=== PATIENT | female | born 1940 | race African-American/Black ===

== ENCOUNTER 2016-04-19 00:45 | Inpatient (IN) | payer OTHER ==
[~2016-04-19] VITALS: Ht 165.1 cm; Wt 74.0 kg
[2016-04-19] VITALS (9 sets, daily range): BP systolic 149–194; BP diastolic 61–80; PULSE 67–108; RESP 16–18; TEMP 98–98.3; O2SAT 98–100
[2016-04-19] MEDS ORDERED: SODIUM CHLORIDE 0.9% FLUSH 5 ML FLUSH IVF PRN (01:15)
[2016-04-19] MEDS ORDERED: ONDANSETRON HCL 4 MG/2 ML VIAL IVP ONE (01:15)
--- NOTE | 2016-04-19 01:23 | PD ---
HPI Chief Complaint: Psychiatric Symptoms Time Seen by Provider: 01:10 Travel History International Travel<30 days: No Contact w/Intl Traveler<30days: No Traveled to known affect area: No History of Present Illness HPI This is a 76-year-old female who was brought here under Mcmillan act initiated by the Police Department. According to the Mcmillan act form the patient has not taken any medication or eaten anything in the past 4 days. No other history is available at this time. The patient has never been here before. The patient is complaining of generalized abdominal pain. She says that this comes and goes. She offers no time frame for the pain. She denies nausea or vomiting, diarrhea or constipation, fevers or chills, chest pain or shortness of breath. When asked about eating or taking her medications she says that she does take her medications. She is unable to provide any listed medications that she takes. She is unable to provide a past medical history. History is limited. PFSH Past Medical History ?: Not Social History Tobacco Use: No Allergies-Medications (Allergen,Severity, Reaction): Coded Allergies: Penicillin (Verified Allergy, Severe, Anaphylaxis, 04/19/16) Reported Meds & Prescriptions Reported Meds & Active Scripts Active Reported Novolog Inj (Insulin Aspart) 100 Unit/Ml Inj 25 SQ PM Novolog Inj (Insulin Aspart) 100 Unit/Ml Inj 25 Units SQ AM Lantus Inj (Insulin Glargine) 100 Unit/Ml Inj 45 SQ AM Atorvastatin (Atorvastatin Calcium) 40 Mg Tab 40 Mg PO HS Lisinopril 40 Mg Tab 40 Mg PO DAILY Glimepiride 4 Mg Tab 8 Mg PO DAILY Take with breakfast or first main meal Januvia (Sitagliptin Phosphate) 100 Mg Tab 100 Mg PO DAILY Review of Systems ROS Limitations: Poor Historian Except as stated in HPI: all other systems reviewed are Neg Physical Exam Exam Limitations: Poor Historian Narrative GENERAL: Well-developed well-nourished female in no acute distress SKIN: Warm and dry. HEAD: Atraumatic. Normocephalic. EYES: Pupils equal and round. No scleral icterus. No injection or drainage. ENT: No nasal bleeding or discharge. Mucous membranes pink and moist. NECK: Trachea midline. No JVD. CARDIOVASCULAR: Regular rate and rhythm. No murmur appreciated. RESPIRATORY: No accessory muscle use. Clear to auscultation. Breath sounds equal bilaterally. GASTROINTESTINAL: Abdomen soft, there is generalized tenderness to palpation without guarding. MUSCULOSKELETAL: No obvious deformities. NEUROLOGICAL: Awake and alert. No obvious cranial nerve deficits. Motor grossly within normal limits. Normal speech. She is alert to person. She believes that she is in [place]. She does not know what year it is. PSYCHIATRIC: Appropriate mood and affect; insight and judgment normal. Data Data Last Documented VS Vital Signs Date Time Temp Pulse Resp B/P Pulse Ox O2 Delivery O2 Flow Rate FiO2 04/19/16 04:00 75 18 169/76 99 Room Air 04/19/16 00:58 98.0 Orders Complete Blood Count With Diff (04/19/16 01:14) Comprehensive Metabolic Panel (04/19/16 01:14) Lipase (04/19/16 01:14) Prothrombin Time / Inr (Pt) (04/19/16 01:14) Act Partial Throm Time (Ptt) (04/19/16 01:14) Urinalysis - C+S If Indicated (04/19/16 01:14) Ct Abd/Pel W Iv Contrast(Rout) (04/19/16 01:14) Iv Access Insert/Monitor (04/19/16 01:14) Ecg Monitoring (04/19/16 01:14) Oximetry (04/19/16 01:14) Ondansetron Inj (Zofran Inj) (04/19/16 01:15) Sodium Chloride 0.9% Flush (Ns Flush) (04/19/16 01:15) Electrocardiogram (04/19/16 01:14) Ct Brain W/O Iv Contrast(Rout) (04/19/16 01:14) Sodium Chlor 0.9% 1000 Ml Inj (Ns 1000 M (04/19/16 02:47) Iohexol 350 Inj (Omnipaque 350 Inj) (04/19/16 03:03) ^ Sitter (04/19/16 04:00) Psych Screen (04/19/16 04:16) Labs Laboratory Tests Test 04/19/16 04/19/16 01:25 02:25 White Blood Count 7.8 TH/MM3 Red Blood Count 4.12 MIL/MM3 Hemoglobin 12.7 GM/DL Hematocrit 36.5 % Mean Corpuscular Volume 88.7 FL Mean Corpuscular Hemoglobin 30.8 PG Mean Corpuscular Hemoglobin 34.7 % Concent Red Cell Distribution Width 12.6 % Platelet Count 208 TH/MM3 Mean Platelet Volume 10.8 FL Neutrophils (%) (Auto) 60.7 % Lymphocytes (%) (Auto) 29.8 % Monocytes (%) (Auto) 8.3 % Eosinophils (%) (Auto) 0.6 % Basophils (%) (Auto) 0.6 % Neutrophils # (Auto) 4.7 TH/MM3 Lymphocytes # (Auto) 2.3 TH/MM3 Monocytes # (Auto) 0.7 TH/MM3 Eosinophils # (Auto) 0.0 TH/MM3 Basophils # (Auto) 0.1 TH/MM3 CBC Comment DIFF FINAL Differential Comment Prothrombin Time 10.8 SEC Prothromb Time International 1.0 RATIO Ratio Activated Partial 22.5 SEC Thromboplast Time Sodium Level 136 MEQ/L Potassium Level 4.0 MEQ/L Chloride Level 101 MEQ/L Carbon Dioxide Level 26.4 MEQ/L Anion Gap 9 MEQ/L Blood Urea Nitrogen 13 MG/DL Creatinine 1.06 MG/DL Estimat Glomerular Filtration 83 ML/MIN Rate Random Glucose 275 MG/DL Calcium Level 9.1 MG/DL Total Bilirubin 0.5 MG/DL Aspartate Amino Transf 13 U/L (AST/SGOT) Alanine Aminotransferase 19 U/L (ALT/SGPT) Alkaline Phosphatase 132 U/L Total Protein 7.5 GM/DL Albumin 3.6 GM/DL Lipase 81 U/L Urine Color LIGHT-YELLOW Urine Turbidity CLEAR Urine pH 7.5 Urine Specific [place] 1.013 Urine Protein NEG mg/dL Urine Glucose (UA) 1000 mg/dL Urine Ketones NEG mg/dL Urine Occult Blood NEG Urine Nitrite NEG Urine Bilirubin NEG Urine Urobilinogen LESS THAN 2.0 MG/DL Urine Leukocyte Esterase NEG Urine RBC LESS THAN 1 /hpf Urine WBC 1 /hpf Urine Squamous Epithelial <1 /hpf Cells Urine Bacteria RARE /hpf Urine Hyaline Casts 3 /lpf Urine Mucus FEW /lpf Microscopic Urinalysis Comment CULT NOT INDICATED MDM Medical Decision Making Medical Screen Exam Complete: Yes Emergency Medical Condition: Yes Medical Record Reviewed: Yes Interpretation(s) CT of the abdomen reveals diverticulitis and colon with stool, otherwise unremarkable. Head CT reveals slight atrophic and small vessel ischemic changes with no acute abnormality CBC hemoglobin 12.7 otherwise unremarkable CMP glucose 275 otherwise unremarkable Urinalysis 1000 glucose otherwise unremarkable Differential Diagnosis Obstruction, rupturing AAA, colitis, diverticulitis, appendicitis, cystitis, biliary colic, pancreatitis, dementia, acute psychosis, encephalitis, meningitis Narrative Course This is a 76-year-old female who is apparently Mcmillan acted for not eating or taking her medication over the past 4 days. She is complaining of generalized abdominal pain with an unknown onset. History is limited because the patient is a very poor historian, likely suffers from dementia. We will attempt to contact this patient's family members to obtain additional information. Basic lab work, CT of the brain, CT of the abdomen and pelvis, EKG have been ordered. The nurse was able to speak to the patient's and the patient's sister. Apparently the patient was out shopping with her sister all day. She returned home to her and she was violent. She sometimes has violent outbursts. Her daughter called the police and had her Mcmillan acted. Her daughter is concerned that she may be too difficult for her elderly to take care of. The patient lives with her . The patient has a history of Parkinson 's, diabetes and dementia. The patient's lab work and imaging studies of been reviewed and reveal no acute abnormalities. At this point in time the patient is medically cleared for psychiatric disposition. Diagnosis Primary Impression: Dementia Qualified Code: F03.91 - Dementia with behavioral disturbance, unspecified dementia type Srini Kate Apr 19, 2016 01:23
[2016-04-19] MEDS ORDERED: LISI40TA PO (01:33)
[2016-04-19] MEDS ORDERED: LANTUS2P SQ (01:33)
[2016-04-19] MEDS ORDERED: SITA1TAB2 PO (01:33)
[2016-04-19] MEDS ORDERED: NOVOLOGSS SQ ×2 (01:33)
[2016-04-19] MEDS ORDERED: ATOR40TA16 PO (01:33)
[2016-04-19] MEDS ORDERED: GLIM4TAB PO (01:33)
[2016-04-19 02:04] LABS: AUTOMATED NEUTROPHIL # 4.7 TH/MM3 (1.8-7.7); BASOPHIL # 0.1 TH/MM3 (0-0.2); BASOPHIL % 0.6 % (0.0-2.0); EOSINOPHIL % 0.6 % (0.0-4.0); HEMATOCRIT 36.5 % (39.0-51.0); HEMO FLAGS DIFF FINAL; LYMPH % 29.8 % (9.0-44.0); LYMPHOCYTE # 2.3 TH/MM3 (1.0-4.8); MEAN CELL VOLUME 88.7 FL (80.0-100.0); MEAN CORPUSCULAR HEMOGLOBIN 30.8 PG (27.0-34.0); MEAN CORPUSCULAR HGB CONC 34.7 % (32.0-36.0); MONO % 8.3 % (0.0-8.0); NEUT % 60.7 % (16.0-70.0); PLATELET COUNT 208 TH/MM3 (150-450); RED BLOOD COUNT 4.12 MIL/MM3 (4.50-5.90); RED CELL DISTRIBUTION WIDTH 12.6 % (11.6-17.2); WHITE BLOOD COUNT 7.8 TH/MM3 (4.0-11.0)
[2016-04-19 02:14] LABS: APTT (PATIENT) 22.5 SEC (24.3-30.1); PROTHROMBIN TIME - PATIENT 10.8 SEC (9.8-11.6)
[2016-04-19 02:22] LABS: ALT (GPT) 19 U/L (12-78); ANION GAP 9 MEQ/L (5-15); AST (GOT) 13 U/L (15-37); BICARBONATE 26.4 MEQ/L (21.0-32.0); BLOOD UREA NITROGEN 13 MG/DL (7-18); CHLORIDE 101 MEQ/L (98-107); GLOMERULAR FILTRATION RATE 83 ML/MIN (>89); SODIUM (NA) 136 MEQ/L (136-145)
[2016-04-19 02:24] LABS: ALKALINE PHOSPHATASE 132 U/L (45-117); TOTAL BILIRUBIN ADULT 0.5 MG/DL (0.2-1.0)
[2016-04-19] MEDS ORDERED: SODIUM CHLOR 0.9% 1000 ML INJ 1,000 ML IV SCH (02:47)
[2016-04-19 02:48] LABS: BACTERIA, URINE RARE /hpf; BLOOD, URINE NEG (NEG); COMMENT (UR) CULT NOT INDICATED; CULTURE IF INDICATED CULT NOT INDICATED; GLUCOSE,URINE 1000 mg/dL (NEG); HYALINE CAST, URINE 3 /lpf (RARE); KETONE, URINE NEG (NEG); MUCUS URINE FEW /lpf (OCC); NITRITE,URINE NEG (NEG); PH, URINE 7.5 (5.0-8.5); SQUAMOUS EPITHELIAL CELL URINE <1 /hpf (0-5); URINE COLOR LIGHT-YELLOW (YELLW/STRAW)
[2016-04-19] MEDS ORDERED: IOHEXOL 350 MG/ML 10 ML VIAL (for RAD DIAG) IV ONE (03:03)
--- NOTE | 2016-04-19 03:42 | RADRPT ---
EXAM DATE/TIME: 04/19/2016 02:54 [facility] COMPARISON: No previous studies available for comparison. INDICATIONS : Altered mental status. RADIATION DOSE: 69.15 CTDIvol (mGy) MEDICAL HISTORY : None SURGICAL HISTORY : None. ENCOUNTER: Initial ACUITY: 1 day PAIN SCALE: 0/10 LOCATION: distal TECHNIQUE: Multiple contiguous axial images were obtained of the head. Using automated exposure control and adj ustment of the mA and/or kV according to patient size, radiation dose was kept as low as reasonably a chievable to obtain optimal diagnostic quality images. FINDINGS: There is no evidence for intracranial hemorrhage, mass effect, mass lesions, or edema. The visualize d bony structures appear intact. Slight degree of brain atrophy is seen. Slight periventricular whit e matter changes are seen nonspecific mostly consistent with chronic small vessel ischemic changes. There are no signs of acute infarction for technique. CONCLUSION: Slight atrophic and small vessel ischemic changes without any evidence for acute hemorrhage or mass effect. Crow Madrigal MD on April 19, 2016 at 3:40 Board Certified Radiologist. This report was verified electronically.
--- NOTE | 2016-04-19 03:48 | RADRPT ---
EXAM DATE/TIME: 04/19/2016 02:57 [facility] COMPARISON: No previous studies available for comparison. INDICATIONS : Abdominal pain, not eating since friday. IV CONTRAST: 85 cc Omnipaque 350 (iohexol) IV ORAL CONTRAST: No oral contrast ingested. RADIATION DOSE: 7.11 CTDIvol (mGy) MEDICAL HISTORY : None SURGICAL HISTORY : None. ENCOUNTER: Initial ACUITY: 4 - 6 days PAIN SCALE: Non-responsive LOCATION: abdomen TECHNIQUE: Volumetric scanning of the abdomen and pelvis was performed. Using automated exposure control and ad justment of the mA and/or kV according to patient size, radiation dose was kept as low as reasonably achievable to obtain optimal diagnostic quality images. FINDINGS: CT Abdomen: The liver, spleen, pancreas, kidneys, adrenals are unremarkable. There is no evidence for any appreciable pathological adenopathy, free fluid, or bowel obstruction. There is slight atelecta sis in the right middle lobe. Chronic vascular calcifications are present involving the aorta, iliac arteries without any significant stenosis or aneurysmal dilatations for technique. CT pelvis: There is no evidence for mass, abscess formation, or any significant adenopathy within the pelvis. There is moderate amount of stool throughout the colon. There are scattered diverticuli main ly in the sigmoid colon without definite signs of diverticulitis. CONCLUSION: Diverticuli in the colon with stool, otherwise unremarkable. Crow Madrigal MD on April 19, 2016 at 3:44 Board Certified Radiologist. This report was verified electronically.
[2016-04-19] MEDS ORDERED: MAGNESIUM HYDROXIDE SUSP 30 ML CUP PO PRN (18:45)
[2016-04-19] MEDS ORDERED: LORazepam 2 MG/ML VIAL - age > 65 yrs IM PRN (18:45)
[2016-04-19] MEDS ORDERED: GLUCAGON 1 MG/ML VIAL OTHER PRN (19:15)
[2016-04-19] MEDS ORDERED: DEXTROSE 50% IN WATER 50 ML VIAL(D50) IV PUSH PRN (19:15)
[2016-04-19] MEDS: LOW DOSE INSULIN NOVOLIN REGULAR SUPPLEMENTAL SCALE SQ SCH (21:00)
[2016-04-19] MEDS: REMOVE OLD NICOTINE PATCH T-DERMAL SCH (21:00)
--- NOTE | 2016-04-19 22:43 | EKG ---
Date Performed: 04/19/2016 Time Performed: 01:22:01 PTAGE: 76 years EKG: Sinus rhythm NORMAL ECG NO PREVIOUS TRACING DOCTOR: Scott Mtz Interpretating Date/Time 04/19/2016 22:40:26
[2016-04-20 05:26] VITALS: BP 123/58; PULSE 80; RESP 18; TEMP 98.5; O2SAT 100
[2016-04-20] MEDS: LOW DOSE INSULIN NOVOLIN REGULAR SUPPLEMENTAL SCALE SQ SCH ×3 (06:13→16:00)
[2016-04-20 08:06] LABS: ANION GAP 8 MEQ/L (5-15); BICARBONATE 27.2 MEQ/L (21.0-32.0); BLOOD UREA NITROGEN 17 MG/DL (7-18); CHLORIDE 104 MEQ/L (98-107); GLOMERULAR FILTRATION RATE 73 ML/MIN (>89); HDL CHOLESTEROL 48.1 MG/DL (40.0-60.0); LDL CHOLESTEROL 115 MG/DL (0-99); POTASSIUM 3.8 MEQ/L (3.5-5.1); SODIUM (NA) 139 MEQ/L (136-145)
[2016-04-20] MEDS: NICOTINE 21 MG/24 HR PATCH T-DERMAL SCH (09:00)
--- NOTE | 2016-04-20 09:53 | HHI.HP ---
Provisional Diagnosis Admission Date Apr 19, 2016 at 17:25 [place] I. Dementia with behavior problem [place] II. No diagnosis [place] III. History of diabetes and high blood pressure [place] IV. Moderate stress noncompliance in taking medication [place] V. GAF of 40-45 Certification of Person's Competence To Provide Express and Informed Consent I have personally examined Conner Martin , a person being served at [facility] on, Apr 20, 2016 09:44. Express and informed consent means consent voluntarily given in writing, by a competent person, after sufficient explanation and disclosure of the subject matter involved to enable the person to make a knowing and willful decision without any element of force, fraud, deceit, duress, or other form of constraint or coercion. This person is 18 years of age or older, is not now known to be incompetent to consent to treatment with a guardian advocate, and does not have a health care surrogate or proxy currently making medical treatment decisions. I have found this person to be one of the following: [] Competent to provide express and informed consent, as defined above, for voluntary admission to this facility and is competent to provide express and informed consent for treatment. He/she has the consistent capacity to make well reasoned, willful, and knowing decisions concerning his or her medical or mental health treatment. The person fully and consistently understands the purpose of the admission for examination/placement and is fully capable of personally exercising all rights assured under [place] [x] Incompetent to provide express and informed consent to voluntary admission, and this is incompetent to provide express and informed consent to treatment. The person must be transferred to involuntary status and a petition for a guardian advocate filed with the Circuit Court. [] Refusing to provide express and informed consent to voluntary admission but is competent to provide express and informed consent for treatment. The person must be discharged or transferred to involuntary status. Form shall be completed within 24 hours of a person's arrival at the receiving facility and filed in the clinical record of each person: 1. Admitted on a voluntary basis 2. Permitted to provide express and informed consent to his/her own treatment 3. Allowed to transfer from involuntary to voluntary status 4. Prior to permitting a person to consent to his or her own treatment after having been previously found incompetent to consent to treatment. History of Present Illness Capacity: Lacks Capacity HPI This is a 76-year-old black female was admitted under Mcmillan act because she was refusing to take the medication for few days not eating and becoming aggressive towards the family members. Patient has a history of diabetes and high blood pressure. And a history of dementia. Patient has become more forgetful. And agitated. Family probably could not control her behavior and the police were called in and she was Mcmillan acted. Reportedly patient never had any psychiatric problem. Patient was not taking any psychotropic medication. Recently she was given Ativan when necessary. Patient denies any suicidal ideation intentions or plan. Patient denies any auditory or visual hallucination at this time patient is very pleasant and cooperative but forgetful and confused Review of Systems Except as stated in HPI: all other systems reviewed are Neg Psychiatric: COMPLAINS OF: Confusion, Mood changes Past Psych History Psychological trauma history Patient denied any physical verbal or sexual abuse growing up Violence risk - others (6 mos) Reportedly patient became aggressive towards the family recently Violence risk - self (6 mos) Patient denies any suicidal ideation intentions or plan Substance Abuse History Drugs/Alcohol past 12 months Denies any history of alcohol or drug abuse Past Family Social History Coded Allergies: Penicillin (Verified Allergy, Severe, Anaphylaxis, 04/19/16) Reported Medications Insulin Aspart Inj (Novolog Inj)100 Unit/Ml Inj25 SQ pm 04/19/16 Insulin Aspart Inj (Novolog Inj)100 Unit/Ml Inj25 Units SQ am 04/19/16 Insulin Glargine Inj (Lantus Inj)100 Unit/Ml Inj45 SQ am 04/19/16 Atorvastatin 40 Mg Tab40 Mg PO HS #30 TAB Ref 0 04/19/16 Lisinopril 40 Mg Tab40 Mg PO DAILY #30 TAB Ref 0 04/19/16 Glimepiride 4 Mg Tab8 Mg PO DAILY #30 TAB Ref 0 Take with breakfast or first main meal 04/19/16 Sitagliptin (Januvia)100 Mg Hrv228 Mg PO DAILY #30 TAB Ref 0 04/19/16 Current Medications Medications (Trade) Dose Ordered Sig/Dariel Route Start Time Stop Time Status Last Admin (NS Flush) 2 ml UNSCH PRN IVF 04/19/16 01:15 (Ativan) 0.5 mg Q12H PRN PO 04/19/16 18:45 (Ativan Inj) 0.5 mg Q12H PRN IM 1/20/17 18:45 (Tylenol) 650 mg Q4H PRN PO 04/19/16 18:45 (Milk Of Magnesia Liq) 30 ml DAILY PRN PO 04/19/16 18:45 (Mag-Al Plus Susp Liq) 30 ml Q6H PRN PO 04/19/16 18:45 (Habitrol 21 Mg Patch.24 Hr) 1 patch DAILY T-DERMAL 04/20/16 09:00 Miscellaneous Information 1 HS T-DERMAL 04/19/16 21:00 (D50w (Vial) Inj) 25 ml UNSCH PRN IV PUSH 04/19/16 19:15 (Glucagon Inj) 1 mg UNSCH PRN OTHER 04/19/16 19:15 Family History Not available at this time Social History Patient was born in [place]. She has 2 brothers and 3 sisters. She claimed that she was close to her parents they were good. Her childhood was described as happy. She denied any physical verbal or sexual abuse growing up. 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 She has 2 children one son and a daughter. Lately she has been diagnosed with dementia and has been becoming more confused and forgetful and now she is not taking her medication and becoming agitated. Patient's Strengths (min. 2) Patient is cooperative and willing to take the medication Physical Exam Patient denies any physical complaints but has a history of diabetes and high blood pressure. Vital signs are stable please see the emergency room evaluation I agree with that Vital Signs Vital Signs Date Time Temp Pulse Resp B/P Pulse Ox O2 Delivery O2 Flow Rate FiO2 04/20/16 05:26 98.5 80 18 123/58 100 04/19/16 17:36 Room Air I/O 04/19/16 04/19/16 04/20/16 08:00 16:00 00:00 Intake Total 360 ml Balance 360 ml Mental Status Examination This is a 76-year-old black female who looks about the same as her stated age was alert oriented 1 cooperative casually dressed pleasantly confused. Her speech was slow without any evidence of loose association or flights of ideas her mood was described as somewhat confused and not know where she was always going on her affect was labile. She denied any suicidal ideation intentions or plan. Denied any active auditory or visual hallucinations. No evidence of any paranoid delusion at this time. She seems to be of average intelligence with poor recent and remote memory her insight is limited and her judgment is questionable. Her gait is normal fund of knowledge is average her language is normal Assessment & Plan Problem List: (1) Dementia ICD Code: F03.90 Assessment & Plan Estimated LOS: 5 days. This is a 76-year-old black female was admitted with the diagnosis of dementia and noncompliance in taking medication becoming aggressive towards the family for stabilization on the medication. Admit observe evaluation and treatment. Patient will participate in all the therapeutic activity on the floor. Vital signs every shift LMD take care of her diabetes and high blood pressure. patient services rep to assist in aftercare and discharge planning. Request HC Surrog/Guard Advoc?: Yes Problem Qualifiers (1) Dementia: Qualified Code: F03.91 - Dementia with behavioral disturbance, unspecified dementia type Vikash Calero MD Apr 20, 2016 09:53
--- NOTE | 2016-04-20 16:35 | PD.CONS ---
HPI Service [facility] Consult Requested By Psychiatry team Reason for Consult Medical management diabetes, hypertension Primary Care Physician Non-Staff Diagnoses: History of Present Illness Patient is a 76 year old female originally from [place] with primary medical history according to chart review to be Parkinson's, diabetes, dementia who came into the hospital under Mcmillan act secondary to patient being violent. In the ED, patient has been complaining of abdominal pain, CT of the abdomen reveals diverticulitis and colon with stool, otherwise unremarkable. She is now admitted to inpatient psychiatry unit for further evaluation. We are consulted for medical management of diabetes, hypertension. Patient seen today. Denies any abdominal pain. Upon further evaluation she says leg abdominal pain comes and go. Patient is confused but able to answer some questions and follows commands. Patient reports she has diabetes on insulin, she also has high blood pressure. Poor historian. Otherwise, denies pain and discomfort. Denies SOB/ dyspnea. Denies chest pain, palpitations, headaches, dizziness. Denies fevers, chills, n/v/d. Review of Systems ROS Limitations: Poor Historian Past Family Social History Allergies: Coded Allergies: Penicillin (Verified Allergy, Severe, Anaphylaxis, 04/19/16) Past Medical History Parkinson's Diabetes Dementia Hypertension Past Surgical History Abdominal surgery, hysterectomy? Reported Medications Novolog Inj (Insulin Aspart) 100 Unit/Ml Inj 25 SQ PM Novolog Inj (Insulin Aspart) 100 Unit/Ml Inj 25 Units SQ AM Lantus Inj (Insulin Glargine) 100 Unit/Ml Inj 45 SQ AM Atorvastatin (Atorvastatin Calcium) 40 Mg Tab 40 Mg PO HS Lisinopril 40 Mg Tab 40 Mg PO DAILY Glimepiride 4 Mg Tab 8 Mg PO DAILY Take with breakfast or first main meal Januvia (Sitagliptin Phosphate) 100 Mg Tab 100 Mg PO DAILY Active Ordered Medications Current Medications Medications (Trade) Dose Ordered Sig/Dariel Route Start Time Stop Time Status Last Admin (NS Flush) 2 ml UNSCH PRN IVF 04/19/16 01:15 (Ativan) 0.5 mg Q12H PRN PO 04/19/16 18:45 (Ativan Inj) 0.5 mg Q12H PRN IM 04/19/16 18:45 (Tylenol) 650 mg Q4H PRN PO 04/19/16 18:45 (Milk Of Magnesia Liq) 30 ml DAILY PRN PO 04/19/16 18:45 (Mag-Al Plus Susp Liq) 30 ml Q6H PRN PO 04/19/16 18:45 (Habitrol 21 Mg Patch.24 Hr) 1 patch DAILY T-DERMAL 04/20/16 09:00 Miscellaneous Information 1 HS T-DERMAL 04/19/16 21:00 (D50w (Vial) Inj) 25 ml UNSCH PRN IV PUSH 04/19/16 19:15 (Glucagon Inj) 1 mg UNSCH PRN OTHER 04/19/16 19:15 Family History States diabetes runs in her family. Social History Occasional alcohol use Denies tobacco use Occasional marijuana use Physical Exam Vital Signs Vital Signs Date Time Temp Pulse Resp B/P Pulse Ox O2 Delivery O2 Flow Rate FiO2 04/20/16 05:26 98.5 80 18 123/58 100 04/19/16 18:08 98.3 108 18 149/76 100 04/19/16 17:36 67 16 149/61 99 Room Air Physical Exam GENERAL: This is a well-nourished, well-developed patient, in no apparent distress. SKIN: No rashes, ecchymoses or lesions. Cool and dry. HEAD: Atraumatic. Normocephalic. No temporal or scalp tenderness. EYES: Pupils equal round and reactive. Extraocular motions intact. No scleral icterus. No injection or drainage. ENT: Nose without bleeding. Throat without erythema. Uvula midline. Airway patent. NECK: Trachea midline. No JVD or lymphadenopathy. Supple, nontender, no meningeal signs. CARDIOVASCULAR: Regular rate and rhythm without murmurs, gallops, or rubs. RESPIRATORY: Clear to auscultation. Breath sounds equal bilaterally. No wheezes , rales, or rhonchi. GASTROINTESTINAL: Abdomen soft, non-tender, nondistended. Bowel sounds active 4. MUSCULOSKELETAL: Extremities without clubbing, cyanosis, or edema. No joint tenderness, effusion, or edema noted. No calf tenderness. Negative Homans sign bilaterally. NEUROLOGICAL: Awake and alert. Oriented to self. Motor and sensory grossly within normal limits. Poor gait and balance.. Normal speech. Laboratory Laboratory Tests Test 04/20/16 06:30 Sodium Level 139 Potassium Level 3.8 Chloride Level 104 Carbon Dioxide Level 27.2 Anion Gap 8 Blood Urea Nitrogen 17 Creatinine 0.91 Estimat Glomerular Filtration 73 Rate Random Glucose 73 Calcium Level 8.9 Triglycerides Level 104 Cholesterol Level 184 LDL Cholesterol 115 HDL Cholesterol 48.1 Cholesterol/HDL Ratio 3.82 Result Diagram: 04/19/16 0125 04/20/16 0630 Assessment and Plan Problem List: (1) Dementia ICD Code: F03.90 Status: Acute (2) HLD (hyperlipidemia) ICD Code: E78.5 Status: Chronic (3) DM type 2 (diabetes mellitus, type 2) ICD Code: E11.9 Status: Chronic (4) HTN (hypertension) ICD Code: I10 Status: Chronic Assessment and Plan Patient is a 76-year-old female who was brought in to the hospital under Mcmillan act secondary to being violent at home. She is now admitted to inpatient psychiatry unit for further evaluation. Consulted for medical management. Dementia - managed by psychiatry team DM 2 , ? control - restart home meds Januvia, glimepiride - Restart Lantus - Monitor Accu-Cheks, insulin sliding scale for now - Check hemoglobin A1c HTN - restart lisinopril 40 mg. Monitor BMP. Adjust dose as necessary - Hydralazine when necessary HLD - restart home medication atorvastatin DVT prop early ambulation Thank you for this consultation. We will follow patient with you. Written by Phyllis Moreno, acting as scribe for Dr. Davis on 04/20/16 at 13: 04. The documentation accurately reflects the work performed [id number] by me on at 13:04. Code Status Full code Discussed Condition With Patient, nursing Problem Qualifiers (1) Dementia: Qualified Code: F03.91 - Dementia with behavioral disturbance, unspecified dementia type (2) DM type 2 (diabetes mellitus, type 2): Phyllis Turner Apr 20, 2016 16:35 Francesca Davis MD Apr 21, 2016 10:42
[2016-04-20] MEDS ORDERED: hydrALAZINE HCL 10 MG TAB PO PRN (16:45)
[2016-04-20] MEDS ORDERED: DEXTROSE 50% IN WATER 50 ML VIAL(D50) IV PUSH PRN (16:45)
[2016-04-20] MEDS ORDERED: GLUCAGON 1 MG/ML VIAL OTHER PRN (16:45)
[2016-04-20 19:55] VITALS: BP 142/61; PULSE 95; RESP 18; TEMP 98.1
[2016-04-20] MEDS: ATORVASTATIN 40 MG TAB PO SCH (20:46)
[2016-04-20] MEDS: INSULIN ASPART SUPPLEMENTAL SCALE SQ SCH (20:47)
[2016-04-20] MEDS: INSULIN DETEMIR 100 UNITS/ML VIAL SQ SCH (20:47)
[2016-04-20] MEDS: REMOVE OLD NICOTINE PATCH T-DERMAL SCH (21:00)
[2016-04-21 05:32] VITALS: BP 125/63; PULSE 94; RESP 18; TEMP 98.2; O2SAT 98
[2016-04-21] MEDS: INSULIN ASPART SUPPLEMENTAL SCALE SQ SCH ×4 (06:17→20:56)
[2016-04-21] MEDS: ALUMINUM/MAGNESIUM/SIMETH 30 ML CUP PO PRN ×2 (08:00→18:25)
[2016-04-21] MEDS: LISINOPRIL 20 MG TAB PO SCH (08:42)
[2016-04-21] MEDS: NICOTINE 21 MG/24 HR PATCH T-DERMAL SCH (08:42)
[2016-04-21] MEDS: GLIMEPIRIDE 4 MG TAB PO SCH (08:42)
[2016-04-21 09:41] LABS: HEMOGLOBIN A1a 1.6 %; HEMOGLOBIN A1b 1.2 %; HEMOGLOBIN Ao 74.9 %; HEMOGLOBIN F 2.2 %; HEMOGLOBIN LA1C 1.8 %; HEMOGLOBIN P3 4.5 %
--- NOTE | 2016-04-21 14:46 | PD.CONS ---
Provisional Diagnosis Admission Date Apr 19, 2016 at 17:25 [place] I. Dementia with behavior problem [place] II. No diagnosis [place] III. History of diabetes and high blood pressure [place] IV. Moderate stress noncompliance in taking medication [place] V. GAF of 20 History of Present Illness Service Psychiatry Consult Requested By Psychiatry Reason for Consult 2nd opinion Primary Care Physician Non-Staff HPI Pt seen and discussed with staff.Chart reviewed. Pt is a 76 YOBF who was admitted under a BA alleging that pt was refusing medications and food and became aggressive towards family members. Pt has a hx of dementia, DM and HTN. Pt has become increasingly agitated and forgetful at home. On interview, pt is oriented only to self. She states that she is tired. She is unable to give any history. Staff report that pt barricaded herself in her room twice today due to confusion. Review of Systems Psychiatric: COMPLAINS OF: Confusion Past Family Social History Coded Allergies: Penicillin (Verified Allergy, Severe, Anaphylaxis, 04/19/16) Reported Medications Insulin Aspart Inj (Novolog Inj)100 Unit/Ml Inj25 SQ pm 04/19/16 Insulin Aspart Inj (Novolog Inj)100 Unit/Ml Inj25 Units SQ am 04/19/16 Insulin Glargine Inj (Lantus Inj)100 Unit/Ml Inj45 SQ am 04/19/16 Atorvastatin 40 Mg Tab40 Mg PO HS #30 TAB Ref 0 04/19/16 Lisinopril 40 Mg Tab40 Mg PO DAILY #30 TAB Ref 0 04/19/16 Glimepiride 4 Mg Tab8 Mg PO DAILY #30 TAB Ref 0 Take with breakfast or first main meal 04/19/16 Sitagliptin (Januvia)100 Mg Aru816 Mg PO DAILY #30 TAB Ref 0 04/19/16 Current Medications Medications (Trade) Dose Ordered Sig/Dariel Route Start Time Stop Time Status Last Admin (NS Flush) 2 ml UNSCH PRN IVF 04/19/16 01:15 (Ativan) 0.5 mg Q12H PRN PO 04/19/16 18:45 Hold (Ativan Inj) 0.5 mg Q12H PRN IM 04/19/16 18:45 Hold (Tylenol) 650 mg Q4H PRN PO 04/19/16 18:45 (Milk Of Magnesia Liq) 30 ml DAILY PRN PO 04/19/16 18:45 (Mag-Al Plus Susp Liq) 30 ml Q6H PRN PO 04/19/16 18:45 (Habitrol 21 Mg Patch.24 Hr) 1 patch DAILY T-DERMAL 04/20/16 09:00 Miscellaneous Information 1 HS T-DERMAL 04/19/16 21:00 (Lipitor) 40 mg HS PO 04/20/16 21:00 04/20/16 20:46 (Amaryl) 8 mg DAILY PO 04/21/16 09:00 04/21/16 08:42 (Prinivil) 40 mg DAILY PO 04/21/16 09:00 04/21/16 08:42 (Januvia) 100 mg DAILY PO 04/21/16 09:00 04/21/16 08:42 (D50w (Vial) Inj) 25 ml UNSCH PRN IV PUSH 04/20/16 16:45 (Glucagon Inj) 1 mg UNSCH PRN OTHER 04/20/16 16:45 (Levemir Inj) 10 units HS SQ 04/20/16 21:00 04/20/16 20:47 (Apresoline) 10 mg Q6HR PRN PO 04/20/16 16:45 Family History pt unable to provide Social History Lives with family. Patient's Strengths (min. 2) Patient is cooperative and willing to take the medication Physical Exam Vital Signs Vital Signs Date Time Temp Pulse Resp B/P Pulse Ox O2 Delivery O2 Flow Rate FiO2 04/21/16 05:32 98.2 94 18 125/63 98 04/19/16 17:36 Room Air I/O 04/20/16 04/20/16 04/21/16 08:00 16:00 00:00 Intake Total 240 ml 420 ml Balance 240 ml 420 ml Mental Status Examination Speech: Hesitant Orientation: Person Memory: Impaired (describe) (severe) Thought Process: Loose Association Thought Content: Other (poverty of thought) Hallucination Type: None Attention and Concentration: Easily Distracted Suicidal Ideation: No Homicidal Ideation: No Insight: Poor Judgement: Poor Affect if Inappropriate: Flat Mood: Anxious Motor Activity: Normal gait Assessment & Plan Problem List: (1) Dementia ICD Code: F03.90 Assessment & Plan I agree that pt meets involuntary hospitalization disorder due to risk of neglect and aggression due to mental state. 2nd opinion paperwork completed. Estimated LOS: days Request HC Surrog/Guard Advoc?: Yes Problem Qualifiers (1) Dementia: Qualified Code: F03.91 - Dementia with behavioral disturbance, unspecified dementia type Neema Barajas MD Apr 21, 2016 14:46
[2016-04-21 19:53] VITALS: BP 135/64; PULSE 92; RESP 17; TEMP 98.6; O2SAT 96
[2016-04-21] MEDS: INSULIN DETEMIR 100 UNITS/ML VIAL SQ SCH (20:55)
[2016-04-21] MEDS: ATORVASTATIN 40 MG TAB PO SCH (20:55)
[2016-04-21] MEDS: REMOVE OLD NICOTINE PATCH T-DERMAL SCH (21:00)
[2016-04-22 05:09] VITALS: BP 104/51; PULSE 85; RESP 18; TEMP 97.9; O2SAT 100
[2016-04-22] MEDS: INSULIN ASPART SUPPLEMENTAL SCALE SQ SCH ×4 (05:27→20:39)
[2016-04-22] MEDS: NICOTINE 21 MG/24 HR PATCH T-DERMAL SCH (08:31)
[2016-04-22] MEDS: GLIMEPIRIDE 4 MG TAB PO SCH (08:31)
[2016-04-22] MEDS: LISINOPRIL 20 MG TAB PO SCH ×2 (08:31→09:19)
--- NOTE | 2016-04-22 14:02 | HHI.PYPN ---
Subjective Remarks Patient discussed with treatment team, chart reviewed, patient seen on unit. Patient pleasant with me though diffusely disoriented to place time and situation. Progress note from yesterday stated patient barricaded herself in her room twice. Also history of patient's aggressive behavior at home. For now will start Seroquel 25 mg 9 AM and 4 PM. Will have counselor attempt to reach patient's family to get further information and try to arrange for a family meeting next 1-2 days Review of Systems Except as stated in HPI: all other systems reviewed are Neg Objective Alert: Yes [place]: Person Mood: Calm Affect: Restricted (slightly) Memory Intact: Comment Hallucinations: Other (denies) Delusions: No Delusion Type: Paranoid (vaguely) Suicidal: Ideation (denies) Homicidal: Ideation (denies) Insight/Judgement Very poor Vitals/IOs Vital Signs Date Time Temp Pulse Resp B/P Pulse Ox O2 Delivery O2 Flow Rate FiO2 04/22/16 05:09 97.9 85 18 104/51 100 04/19/16 17:36 Room Air Intake and Output 04/21/16 04/21/16 04/22/16 08:00 16:00 00:00 Intake Total 0 ml 360 ml 440 ml Balance 0 ml 360 ml 440 ml Assessment & Plan Problem List: (1) Dementia ICD Code: F03.90 Assessment & Plan Estimated LOS: days patient can a few, demented, though plus met this time, no chill behavioral problems yesterday. Will offer Seroquel 25 mg 9 AM and 4 PM only with permission of health care surrogate/guardian advocate Justification for Cont. Inpt. At this time patient would severely decompensate if placed in the lower level of care Discharge Planning To be determined Request HC Surrog/Guard Advoc?: Yes Problem Qualifiers (1) Dementia: Qualified Code: F03.91 - Dementia with behavioral disturbance, unspecified dementia type [place] Ray MD Apr 22, 2016 14:02
[2016-04-22] MEDS: QUEtiapine FUMARATE 25 MG TAB PO SCH (16:26)
[2016-04-22 17:30] VITALS: O2SAT 100
[2016-04-22 17:43] LABS: BLOOD GAS CARBOXYHEMOGLOBIN 1.3 % (0-4); BLOOD GAS HCO3 24 mmol/L (22-26); BLOOD GAS METHEMOGLOBIN 0.9 % (0-2); BLOOD GAS O2 HGB SATURATION 94 % (90-100); BLOOD GAS OXYGEN CONTENT 17.1 Vol % (12.0-20.0); BLOOD GAS PCO2 39 mmHg (38-42); BLOOD GAS PO2 82 mmHg (61-120); BLOOD GAS TOTAL HGB 12.8 G/DL (12.0-16.0); CRITICAL VALUE NO; FIO2 21 %; TEMP CORR TO 98.6
[2016-04-22 17:44] LABS: DRAW SITE LT RADIAL; NUMBER OF ARTERIAL PUNCTURES 1; STAT YES; ULNAR PULSE PRESENT
[2016-04-22 18:00] VITALS: BP 108/58; PULSE 107; RESP 16; TEMP 98.9; O2SAT 99
--- NOTE | 2016-04-22 18:09 | HHI.PR ---
Addendum to Inpatient Note Additional Information Discussed with Samy RN as well as patient's RN. Patient became unresponsive for about a minute. She was sitting I believe in the day room and she passed out. Blood glucose was over 200, EKG appeared to be NSR, Blood pressure 165. ABG showed no evidence of hypercapnia or hypoxia. Per Samy RN (Brian), patient is back to her baseline, talking appropriately, following commands. There is no focal deficits. At this point, I recommended to keep patient in the psychiatry unit, check on patient somewhat frequently. I will call night RN around 10PM to check on the patient. If there is any change, night hospitalist can be paged. I will see patient in the morning tomorrow. Minoo Callahan DO Apr 22, 2016 18:09
[2016-04-22 19:57] LABS: CREATINE KINASE 150 U/L (26-192)
[2016-04-22] MEDS: REMOVE OLD NICOTINE PATCH T-DERMAL SCH (20:39)
[2016-04-22] MEDS: ATORVASTATIN 40 MG TAB PO SCH (20:39)
[2016-04-22] MEDS: INSULIN DETEMIR 100 UNITS/ML VIAL SQ SCH (20:39)
[2016-04-22] MEDS: LORazepam 0.5 MG TAB age > 65 yrs PO PRN (20:41)
[2016-04-23 04:57] VITALS: BP 112/64; PULSE 86; RESP 16; TEMP 98; O2SAT 98
[2016-04-23] MEDS: INSULIN ASPART SUPPLEMENTAL SCALE SQ SCH ×4 (05:54→21:13)
[2016-04-23] MEDS ORDERED: INSULIN DETEMIR 100 UNITS/ML VIAL SQ SCH (09:00)
[2016-04-23] MEDS: NICOTINE 21 MG/24 HR PATCH T-DERMAL SCH (09:00)
[2016-04-23] MEDS: QUEtiapine FUMARATE 25 MG TAB PO SCH ×2 (09:09→16:00)
[2016-04-23] MEDS: GLIMEPIRIDE 4 MG TAB PO SCH (09:09)
[2016-04-23] MEDS: LISINOPRIL 20 MG TAB PO SCH (09:10)
--- NOTE | 2016-04-23 10:22 | HHI.PR ---
Subjective Remarks Follow-up diabetes, hypertension. Patient seen ambulating about the halls appears to be in no acute distress does have a poor memory alert and oriented to person only follows some commands. Patient is a poor historian -Offers no complaints Objective Vitals Vital Signs Date Time Temp Pulse Resp B/P Pulse Ox O2 Delivery O2 Flow Rate FiO2 04/23/16 04:57 98.0 86 16 112/64 98 04/22/16 18:00 98.9 107 16 108/58 99 04/22/16 17:30 100 2.00 I/O 04/22/16 04/22/16 04/22/16 04/23/16 04/23/16 04/23/16 07:00 15:00 23:00 07:00 15:00 23:00 Intake Total 0 ml 1560 ml 0 ml Balance 0 ml 1560 ml 0 ml Intake Oral 0 ml 1560 ml 0 ml # Voids 2 3 1 # Bowel Movements 0 Result Diagram: 04/19/165 04/20/16 0630 Imaging Last Impressions Head CT 04/19/16113 Signed Impressions: Service Date/Time: Tuesday, April 19, 2016 02:54 - CONCLUSION: Slight atrophic and small vessel ischemic changes without any evidence for acute hemorrhage or mass effect. Crow Madrigal MD Abdomen/Pelvis CT 04/19/16113 Signed Impressions: Service Date/Time: Tuesday, April 19, 2016 02:57 - CONCLUSION: Diverticuli in the colon with stool, otherwise unremarkable. Crow Madrigal MD Objective Remarks GENERAL: This is a well-nourished, well-developed patient, in no apparent distress. Alert and oriented to person only with dementia. SKIN: No rashes, ecchymoses or lesions. Cool and dry. HEAD: Atraumatic. Normocephalic. No temporal or scalp tenderness. EYES: Extraocular motions intact. No scleral icterus. No injection or drainage. CARDIOVASCULAR: Regular rate and rhythm without murmurs, gallops, or rubs. RESPIRATORY: Clear to auscultation. Breath sounds equal bilaterally. No wheezes , rales, or rhonchi. GASTROINTESTINAL: Abdomen soft, non-tender, nondistended. Bowel sounds normal active 4. MUSCULOSKELETAL: Extremities without clubbing, cyanosis, or edema. No joint tenderness, effusion, or edema noted. No calf tenderness. Negative Homans sign bilaterally. NEUROLOGICAL: Awake and alert. Oriented to self. Motor and sensory grossly within normal limits. Poor gait and balance. No focal deficits appreciated. Normal speech. A/P Problem List: (1) Dementia ICD Code: F03.90 Status: Acute (2) HLD (hyperlipidemia) ICD Code: E78.5 Status: Chronic (3) DM type 2 (diabetes mellitus, type 2) ICD Code: E11.9 Status: Chronic (4) HTN (hypertension) ICD Code: I10 Status: Chronic Assessment and Plan Patient is a 76-year-old female who was brought in to the hospital under [place] act secondary to being violent at home. She is now admitted to inpatient psychiatry unit for further evaluation. Consulted for medical management. Patient had jaylen called 04/22/2015 for, (passing out...unconscience x 1 min while sitting and a urine.)- Patient had received 25 mg of Seroquel approximately an hour before event. Patient has no recollection of the events, denies chest pain, SOB, N/V blood sugar was >200 at the time. Troponin less than 0.02, EKG reviewed sinus rhythm with no acute findings, ABGs reviewed within normal limits.- Appears to be in no acute distress Dementia - managed by psychiatry team DM 2 uncontrolled- continue home meds Januvia, glimepiride - continue Lantus 10 units HS - Monitor Accu-Cheks, insulin sliding scale for now -hemoglobin A1c 13.4 HTN -continue lisinopril 40 mg. Monitor BMP. - Hydralazine when necessary HLD - restart home medication atorvastatin DVT prop early ambulation Code Status Full code Discussed Condition With Patient, nursing and Dr. Callahan Patient had a second syncopal/near syncopal episode this a.m. Of note patient had Seroquel, which is new for her, 25 mg 1 hour before both episodes- recommend holding Seroquel if possible We'll also check E EEG and ultrasound bilateral carotid arteries Continue to monitor Problem Qualifiers (1) Dementia: Qualified Code: F03.91 - Dementia with behavioral disturbance, unspecified dementia type (2) DM type 2 (diabetes mellitus, type 2): Mikayla Archuleta Apr 23, 2016 10:22
[2016-04-23 10:36] VITALS: BP_SYST 117; BP_SYST 118; BP_SYST 120; BP_DIAS 54; BP_DIAS 56; BP_DIAS 58
--- NOTE | 2016-04-23 10:51 | HHI.PYPN ---
Subjective Remarks While on unit staff aspirated see patient patient appears to have a syncopal episode in the shower room where she slumped to the floor consciousness and unresponsive. Patient was placed in Yanely chair, vital signs were stable, lecture level was 201, O2 sats her about 95-100, patient soon started to be responsive first 2 pain stimuli then to verbal stimuli. The freya Garcia was responding appropriately to questions. It appears her vital signs remained stable after about 10-15 minutes patient was spontaneous help to get dressed with staff. Is back in the day room. We did call the hospitalist who will be down around lunchtime. Requests we monitor vital signs and neuro signs. This appears to be the second episode in 24 hours of similar occurrence. Will discuss with hospitalist the possibility of a transfer to a monitor unit for the patient's safety and further assessment for these episodes Review of Systems Except as stated in HPI: all other systems reviewed are Neg Objective Alert: Yes (patient had episode of altered mental status that resolved within 10-15 minutes, will have hospitalist assess patient) [place]: Person Mood: Calm Affect: Restricted (slightly) Memory Intact: Comment Hallucinations: Other (denies) Delusions: No Delusion Type: Paranoid (vaguely) Suicidal: Ideation (denies) Homicidal: Ideation (denies) Insight/Judgement Poor Labs Test 04/22/16 04/22/16 17:30 19:05 Blood Gas Puncture Site LT RADIAL Blood Gas Patient Temperature 98.6 Blood Gas HCO3 24 mmol/L Blood Gas Base Excess 0.0 mmol/L Blood Gas Oxygen Saturation 94 % Arterial Blood pH 7.41 Arterial Blood Partial 39 mmHg Pressure CO2 Arterial Blood Partial 82 mmHg Pressure O2 Arterial Blood Oxygen Content 17.1 Vol % Arterial Blood 1.3 % Carboxyhemoglobin Arterial Blood Methemoglobin 0.9 % Blood Gas Hemoglobin 12.8 G/DL Blood Gas Inspired Oxygen 21 % Total Creatine Kinase 150 U/L Troponin I LESS THAN 0.02 NG/ML Vitals/IOs Vital Signs Date Time Temp Pulse Resp B/P Pulse Ox O2 Delivery O2 Flow Rate FiO2 04/23/16 10:36 117/56 118/58 120/54 04/23/16 04:57 98.0 86 16 98 04/22/16 17:30 2.00 04/19/16 17:36 Room Air Intake and Output 04/22/16 04/22/16 04/23/16 08:00 16:00 00:00 Intake Total 0 ml 1560 ml Balance 0 ml 1560 ml Assessment & Plan Problem List: (1) Dementia ICD Code: F03.90 Assessment & Plan Estimated LOS: days patient had second syncopal episode in 2 days. Live hospitalist assess patient for possible transfer to medical unit for more intensive monitoring Justification for Cont. Inpt. At this time patient was significantly decompensated placed in a lower level of care Discharge Planning To be determined Request HC Surrog/Guard Advoc?: Yes Problem Qualifiers (1) Dementia: Qualified Code: F03.91 - Dementia with behavioral disturbance, unspecified dementia type [place] MD Apr 23, 2016 10:51
--- NOTE | 2016-04-23 16:55 | EKG ---
Date Performed: 04/22/2016 Time Performed: 17:48:15 PTAGE: 76 years EKG: Sinus rhythm Compared to prior tracing no significant change NORMAL ECG PREVIOUS TRACING : 04/19/2016 01.22 DOCTOR: Frances Hess Interpretating Date/Time 04/23/2016 16:52:47
--- NOTE | 2016-04-23 17:49 | RADRPT ---
EXAM DATE/TIME: 04/23/2016 16:22 [facility] COMPARISON: CT BRAIN W/O CONTRAST, April 19, 2016, 2:54. INDICATIONS : Syncope. MEDICAL HISTORY : Parkinson's. Diabetic. Dementia. SURGICAL HISTORY : None. ENCOUNTER: Initial ACUITY: 1 day PAIN SCORE: 0/10 LOCATION: Bilateral neck PEAK SYSTOLIC VELOCITIES (cm/sec): ICA/CCA RATIO: Right: 0.5 Left: 0.8 ICA: Right: 78 Left: 84 CCA: Right: 143 Left: 101 ECA: Right: 57 Left: 46 VERTEBRAL: Right: 78 antegrade Left: 56 antegrade Elevated flow velocities and ICA/CCA ratios have been found to correlate with increased degrees of vessel stenosis, calculated as percentage of diameter relative to a normal segment of distal ICA/CCA FINDINGS: RIGHT CAROTID: No significant stenosis is visualized. The waveforms are within normal limits. Mild soft plaquing of the carotid bulb LEFT CAROTID: No significant stenosis is visualized. The waveforms are within normal limits. VERTEBRAL ARTERIES: Antegrade flow is seen in both vertebral arteries. Mild soft plaque in the carotid bulb MISCELLANEOUS: None. CONCLUSION: No evidence of anatomic or physiologic stenosis . Mild soft plaquing bilateral carotid bulbs Siva Escobedo MD on April 23, 2016 at 17:46 Board Certified Radiologist. This report was verified electronically.
[2016-04-23 20:06] VITALS: BP 119/56; PULSE 82; RESP 16; TEMP 97.9; O2SAT 98
[2016-04-23] MEDS: REMOVE OLD NICOTINE PATCH T-DERMAL SCH (21:00)
[2016-04-23] MEDS: INSULIN DETEMIR 100 UNITS/ML VIAL SQ SCH (21:12)
[2016-04-23] MEDS: ATORVASTATIN 40 MG TAB PO SCH (21:13)
[2016-04-24] VITALS: BP 150/67; PULSE 96; RESP 20; TEMP 98.3; O2SAT 97
[2016-04-24 04:00] VITALS: BP 140/63; PULSE 83; RESP 18; TEMP 97.9; O2SAT 99
[2016-04-24 06:03] VITALS: BP 140/63; PULSE 83; RESP 18; TEMP 98; O2SAT 99
[2016-04-24] MEDS: INSULIN ASPART SUPPLEMENTAL SCALE SQ SCH ×4 (06:41→21:18)
[2016-04-24] MEDS: NICOTINE 21 MG/24 HR PATCH T-DERMAL SCH (09:00)
[2016-04-24] MEDS: LISINOPRIL 20 MG TAB PO SCH (09:17)
[2016-04-24] MEDS: GLIMEPIRIDE 4 MG TAB PO SCH (09:17)
--- NOTE | 2016-04-24 12:01 | HHI.PYPN ---
Subjective Remarks Patient seen in [place] in wheelchair with floor staff, and nurse Cathleen, patient alert diffusely confused though calm with me. Patient on her way for EEG secondary to assessment related to her 2 episodes syncope over the past 2 days. For now we'll continue the Seroquel on hold observe patient Review of Systems Except as stated in HPI: all other systems reviewed are Neg Objective Alert: Yes (patient had episode of altered mental status that resolved within 10-15 minutes, will have hospitalist assess patient) [place]: Person Mood: Calm Affect: Restricted (slightly) Memory Intact: Comment Hallucinations: Other (denies) Delusions: No Delusion Type: Paranoid (vaguely) Suicidal: Ideation (denies) Homicidal: Ideation (denies) Insight/Judgement Poor Vitals/IOs Vital Signs Date Time Temp Pulse Resp B/P Pulse Ox O2 Delivery O2 Flow Rate FiO2 04/24/16 06:03 98.0 83 18 140/63 99 04/22/16 17:30 2.00 Intake and Output 04/23/16 04/23/16 04/24/16 08:00 16:00 00:00 Intake Total 0 ml 960 ml 600 ml Balance 0 ml 960 ml 600 ml Assessment & Plan Problem List: (1) Dementia ICD Code: F03.90 Assessment & Plan Estimated LOS: days patient continues confused and demented, no behavioral problems today. Is cooperative with going for her further testing Justification for Cont. Inpt. This time patient will decompensate if placed in a lower level of care Discharge Planning To be determined Request HC Surrog/Guard Advoc?: Yes Problem Qualifiers (1) Dementia: Qualified Code: F03.91 - Dementia with behavioral disturbance, unspecified dementia type [place] Ray MD Apr 24, 2016 12:01
--- NOTE | 2016-04-24 19:47 | MG ---
cc: RHONDA BOWEN M.D. Lab No: Date: 04/24/2016 Age: Sex: F Race: REQUESTING PHYSICIAN OMID Miramontes INDICATION An EEG obtained on this 76-year-old patient with history of altered mental status, decreased responsiveness, Parkinson's. DESCRIPTION The patient is awake and asleep. Tracing shows some 8-10 per second alpha activity in the central and posterior head regions. There are intermixed theta and delta rhythms bilaterally. There are some intermixed sharp waves. There is some intermittent artifact bilaterally which seems to be maximum on the right and probably some of the slower right hemisphere rhythms leading to some questionable asymmetry. Photic stimulation was unremarkable. INTERPRETATION Abnormal EEG because of intermittent slowing bilaterally most compatible with a mild diffuse disturbance of cerebral function or small bilateral structural abnormalities but no epileptiform features present. MD SHANE Cooper/KK /6:42 PM /7:33 PM
[2016-04-24] MEDS: REMOVE OLD NICOTINE PATCH T-DERMAL SCH (21:00)
[2016-04-24] MEDS: INSULIN DETEMIR 100 UNITS/ML VIAL SQ SCH (21:18)
[2016-04-24] MEDS: ATORVASTATIN 40 MG TAB PO SCH (21:18)
[2016-04-24 22:34] VITALS: BP 151/84; PULSE 103; RESP 18; TEMP 98.3; O2SAT 100
[2016-04-25] MEDS: INSULIN ASPART SUPPLEMENTAL SCALE SQ SCH ×4 (05:35→21:34)
[2016-04-25 06:22] VITALS: BP 127/58; PULSE 95; RESP 20
[2016-04-25] MEDS: NICOTINE 21 MG/24 HR PATCH T-DERMAL SCH (09:00)
[2016-04-25] MEDS: GLIMEPIRIDE 4 MG TAB PO SCH (09:12)
[2016-04-25] MEDS: LISINOPRIL 20 MG TAB PO SCH (09:12)
--- NOTE | 2016-04-25 10:05 | HHI.PYPN ---
Subjective Remarks Patient seen [place], retained by [employer] Constance Mccabe to be guardian advocate. Patient calm and pleasant though continues diffusely confused and disoriented. The been no subsequent episodes of syncopal behavior past 2 days. However with reviewing the nursing documentation appears patient may be more depressed than we have appreciated with her. We will offer Lexapro 10 mg in the morning with permission of the guardian advocate. Counselors notified DCF about patient statement yesterday regarding her safety in the home. [facility] staff is anticipated to come out here today Review of Systems Except as stated in HPI: all other systems reviewed are Neg Objective Alert: Yes (patient had episode of altered mental status that resolved within 10-15 minutes, will have hospitalist assess patient) [place]: Person Mood: Calm Affect: Restricted (slightly) Memory Intact: Comment Hallucinations: Other (denies) Delusions: No Delusion Type: Paranoid (vaguely) Suicidal: Ideation (denies) Homicidal: Ideation (denies) Insight/Judgement Very poor Vitals/IOs Vital Signs Date Time Temp Pulse Resp B/P Pulse Ox O2 Delivery O2 Flow Rate FiO2 04/25/16 06:22 95 20 127/58 04/24/16 22:34 98.3 100 04/22/16 17:30 2.00 Intake and Output 04/24/16 04/24/16 04/25/16 08:00 16:00 00:00 Intake Total 240 ml Balance 240 ml Assessment & Plan Problem List: (1) Dementia ICD Code: F03.90 Assessment & Plan Estimated LOS: days patient continues confused demented, though also appears somewhat sad today she medication adjustment above, EEG showed no epileptiform changes ultrasound of the carotids showing no significant stenosis Justification for Cont. Inpt. At this time patient would significantly decompensate if placed in the lower level of care Discharge Planning To be determined Request HC Surrog/Guard Advoc?: Yes Problem Qualifiers (1) Dementia: Qualified Code: F03.91 - Dementia with behavioral disturbance, unspecified dementia type [place] Ray MD Apr 25, 2016 10:05
--- NOTE | 2016-04-25 16:01 | HHI.PR ---
Subjective Remarks Follow-up diabetes, hypertension and syncope. Patient seen sitting in day room in no acute distress. No further syncopal episodes since Seroquel has been placed on hold. Patient does have a poor memory alert and oriented to person. Patient is a poor historian -Offers no complaints Objective Vitals Vital Signs Date Time Temp Pulse Resp B/P Pulse Ox O2 Delivery O2 Flow Rate FiO2 04/25/16 06:22 95 20 127/58 04/24/16 22:34 98.3 103 18 151/84 100 I/O 04/24/16 04/24/16 04/24/16 04/25/16 04/25/16 04/25/16 07:00 15:00 23:00 07:00 15:00 23:00 Intake Total 240 ml 840 ml Balance 240 ml 840 ml Intake Oral 240 ml 840 ml # Voids 2 2 # Bowel Movements 0 Result Diagram: 04/20/16 0630 Imaging Last Impressions Carotid Artery Ultrasound 04/23/16 0000 Signed Impressions: Service Date/Time: Saturday, April 23, 2016 16:22 - CONCLUSION: No evidence of anatomic or physiologic stenosis . Mild soft plaquing bilateral carotid bulbs Siva Escobedo MD Head CT 04/19/16 0114 Signed Impressions: Service Date/Time: Tuesday, April 19, 2016 02:54 - CONCLUSION: Slight atrophic and small vessel ischemic changes without any evidence for acute hemorrhage or mass effect. Crow Madrigal MD Abdomen/Pelvis CT 04/19/16 0114 Signed Impressions: Service Date/Time: Tuesday, April 19, 2016 02:57 - CONCLUSION: Diverticuli in the colon with stool, otherwise unremarkable. Crow Madrigal MD Objective Remarks GENERAL: This is a well-nourished, well-developed patient, in no apparent distress. Alert and oriented to person only with dementia. SKIN: No rashes, ecchymoses or lesions. Cool and dry. HEAD: Atraumatic. Normocephalic. No temporal or scalp tenderness. EYES: Extraocular motions intact. No scleral icterus. No injection or drainage. CARDIOVASCULAR: Regular rate and rhythm without murmurs, gallops, or rubs. RESPIRATORY: Clear to auscultation. Breath sounds equal bilaterally. No wheezes , rales, or rhonchi. GASTROINTESTINAL: Abdomen soft, non-tender, nondistended. Bowel sounds normal active 4. MUSCULOSKELETAL: Extremities without clubbing, cyanosis, or edema. No joint tenderness, effusion, or edema noted. No calf tenderness. Negative Homans sign bilaterally. NEUROLOGICAL: Awake and alert. Oriented to self. Motor and sensory grossly within normal limits. Poor gait and balance. No focal deficits appreciated. Normal speech. A/P Problem List: (1) Dementia ICD Code: F03.90 Status: Acute (2) HLD (hyperlipidemia) ICD Code: E78.5 Status: Chronic (3) DM type 2 (diabetes mellitus, type 2) ICD Code: E11.9 Status: Chronic (4) HTN (hypertension) ICD Code: I10 Status: Chronic Assessment and Plan Patient is a 76-year-old female who was brought in to the hospital under [place] act secondary to being violent at home. She is now admitted to inpatient psychiatry unit for further evaluation. Consulted for medical management. Patient had [facility] called 04/22/2015 for, (passing out...unconscience x 1 min while sitting and a urine.)- Patient had received 25 mg of Seroquel approximately an hour before event. Patient has no recollection of the events, denies chest pain, SOB, N/V blood sugar was >200 at the time. Troponin less than 0.02, EKG reviewed sinus rhythm with no acute findings, ABGs reviewed within normal limits.- Appears to be in no acute distress Dementia - managed by psychiatry team Syncope- No further syncopal episodes since Seroquel has been placed on hold- recommend no further Seroquel - EEG reviewed intermitted slowing bilaterally compatible with a mild diffuse disturbance of cerebral function are small but bilateral structural abnormalities but no epileptiform features present - Orthostatic vital signs negative for orthostatic hypotension DM 2 uncontrolled- continue home meds Januvia, glimepiride - continue Lantus 10 units HS - Monitor Accu-Cheks, insulin sliding scale for now -hemoglobin A1c 13.4 HTN -continue lisinopril 40 mg. Monitor BMP. - Hydralazine when necessary HLD - continue home medication atorvastatin DVT prop early ambulation Code Status Full code Discussed Condition With Patient and nursing Patient appears medically stable will sign off if patient's condition changes or further assistance is needed please reconsult Record patient follow-up with PCP after discharge Written by Mikayla Archuleta, acting as scribe for Dr. Callahan on 04/25/16 at 15 :19. The documentation accurately reflects the work performed [id number] by me on at 15:19. Problem Qualifiers (1) Dementia: Qualified Code: F03.91 - Dementia with behavioral disturbance, unspecified dementia type (2) DM type 2 (diabetes mellitus, type 2): Mikayla Archuleta Apr 25, 2016 16:01 Minoo Callahan DO Apr 25, 2016 18:30
[2016-04-25] MEDS ORDERED: INSU-171 (16:23)
[2016-04-25] MEDS ORDERED: NOVOLOGP2 SQ (16:23)
[2016-04-25] MEDS ORDERED: LEVEMIR SQ (16:23)
[2016-04-25 20:00] VITALS: BP 152/75; PULSE 97; RESP 18; TEMP 96.9; O2SAT 98
[2016-04-25] MEDS: ATORVASTATIN 40 MG TAB PO SCH (20:57)
[2016-04-25] MEDS: INSULIN DETEMIR 100 UNITS/ML VIAL SQ SCH (20:57)
[2016-04-25] MEDS: REMOVE OLD NICOTINE PATCH T-DERMAL SCH (20:58)
[2016-04-26] MEDS: INSULIN ASPART SUPPLEMENTAL SCALE SQ SCH ×4 (06:12→20:35)
[2016-04-26 06:45] VITALS: BP 107/56; PULSE 89; RESP 18; TEMP 97.5; O2SAT 99
[2016-04-26] MEDS: NICOTINE 21 MG/24 HR PATCH T-DERMAL SCH (09:00)
[2016-04-26] MEDS: LISINOPRIL 20 MG TAB PO SCH (10:42)
[2016-04-26] MEDS: ESCITALOPRAM OXALATE 10 MG TAB PO SCH (10:43)
[2016-04-26] MEDS: GLIMEPIRIDE 4 MG TAB PO SCH (10:43)
--- NOTE | 2016-04-26 12:22 | HHI.PYPN ---
Subjective Remarks Patient seen in day room with nurse Judith, chart reviewed, patient continues diffusely confused low pleasant, with no behavior problems. However when asked about her she becomes somewhat more defensive and guarded. She does denies suicidality homicidality. For now continue treatment Review of Systems Except as stated in HPI: all other systems reviewed are Neg Objective Alert: Yes (patient had episode of altered mental status that resolved within 10-15 minutes, will have hospitalist assess patient) [place]: Person Mood: Calm Affect: Restricted (slightly) Memory Intact: Comment Hallucinations: Other (denies) Delusions: No Delusion Type: Paranoid (vaguely) Suicidal: Ideation (denies) Homicidal: Ideation (denies) Insight/Judgement Very poor Vitals/IOs Vital Signs Date Time Temp Pulse Resp B/P Pulse Ox O2 Delivery O2 Flow Rate FiO2 04/26/16 06:45 97.5 89 18 107/56 99 04/22/16 17:30 2.00 Intake and Output 04/25/16 04/25/16 04/26/16 08:00 16:00 00:00 Intake Total 840 ml 600 ml Balance 840 ml 600 ml Assessment & Plan Problem List: (1) Dementia ICD Code: F03.90 Assessment & Plan Estimated LOS: days patient continues demented and confused, no behavioral problems. However there is increase affect and mild vigilance when referring to her irritable, for now continue treatment no change Justification for Cont. Inpt. At this time patient will decompensate if placed in a lower level of care Discharge Planning To be determined Request HC Surrog/Guard Advoc?: Yes Problem Qualifiers (1) Dementia: Qualified Code: F03.91 - Dementia with behavioral disturbance, unspecified dementia type South Ray MD Apr 26, 2016 12:22
[2016-04-26] MEDS: ACETAMINOPHEN 325 MG TAB PO PRN (15:46)
[2016-04-26] MEDS: ALUMINUM/MAGNESIUM/SIMETH 30 ML CUP PO PRN (15:46)
[2016-04-26 19:19] VITALS: BP 126/67; PULSE 81; RESP 18; TEMP 97.6; O2SAT 98
[2016-04-26] MEDS: REMOVE OLD NICOTINE PATCH T-DERMAL SCH (21:00)
[2016-04-26] MEDS: ATORVASTATIN 40 MG TAB PO SCH (21:49)
[2016-04-26] MEDS: INSULIN DETEMIR 100 UNITS/ML VIAL SQ SCH (21:49)
[2016-04-27 06:05] VITALS: BP 137/67; PULSE 73; RESP 18; TEMP 96.9; O2SAT 100
[2016-04-27] MEDS: NICOTINE 21 MG/24 HR PATCH T-DERMAL SCH (09:00)
[2016-04-27] MEDS: LISINOPRIL 20 MG TAB PO SCH (09:38)
[2016-04-27] MEDS: ESCITALOPRAM OXALATE 10 MG TAB PO SCH (09:38)
[2016-04-27] MEDS: GLIMEPIRIDE 4 MG TAB PO SCH (09:38)
[2016-04-27] MEDS: INSULIN ASPART SUPPLEMENTAL SCALE SQ SCH ×3 (11:30→21:29)
--- NOTE | 2016-04-27 13:43 | HHI.PYPN ---
Subjective Remarks Patient was seen and case discussed with nursing. Patient is pleasant and cooperative with exam. Compliant with her medications. Behaving well on the unit. Doing well per nursing. Denies suicidal ideations thought or plan. Objective Alert: Yes (patient had episode of altered mental status that resolved within 10-15 minutes, will have hospitalist assess patient) [place]: Person Mood: Calm Affect: Restricted (slightly) Memory Intact: Comment Hallucinations: Other (denies) Delusions: No Delusion Type: Paranoid (vaguely) Suicidal: Ideation (denies) Homicidal: Ideation (denies) Insight/Judgement Fair Vitals/IOs Vital Signs Date Time Temp Pulse Resp B/P Pulse Ox O2 Delivery O2 Flow Rate FiO2 04/27/16 06:05 96.9 73 18 137/67 100 Intake and Output 04/26/16 04/26/16 04/27/16 08:00 16:00 00:00 Intake Total 240 ml 360 ml Balance 240 ml 360 ml Assessment & Plan Problem List: (1) Dementia ICD Code: F03.90 Assessment & Plan Continue current treatment plan Justification for Cont. Inpt. Patient would decompensate a less restrictive setting Request HC Surrog/Guard Advoc?: Yes Problem Qualifiers (1) Dementia: Qualified Code: F03.91 - Dementia with behavioral disturbance, unspecified dementia type Jez Acosta DO Apr 27, 2016 13:43
[2016-04-27 20:12] VITALS: BP 121/58; PULSE 77; RESP 16; TEMP 96.7; O2SAT 100
[2016-04-27] MEDS: REMOVE OLD NICOTINE PATCH T-DERMAL SCH (21:00)
[2016-04-27] MEDS: ATORVASTATIN 40 MG TAB PO SCH (21:29)
[2016-04-27] MEDS: INSULIN DETEMIR 100 UNITS/ML VIAL SQ SCH (21:30)
[2016-04-28] MEDS: INSULIN ASPART SUPPLEMENTAL SCALE SQ SCH ×4 (06:04→20:43)
[2016-04-28 06:22] VITALS: BP 143/65; PULSE 81; RESP 18; TEMP 96; O2SAT 99
[2016-04-28] MEDS: NICOTINE 21 MG/24 HR PATCH T-DERMAL SCH (09:00)
[2016-04-28] MEDS: ESCITALOPRAM OXALATE 10 MG TAB PO SCH (10:01)
[2016-04-28] MEDS: LORazepam 0.5 MG TAB age > 65 yrs PO PRN (10:01)
[2016-04-28] MEDS: LISINOPRIL 20 MG TAB PO SCH (10:01)
[2016-04-28] MEDS: GLIMEPIRIDE 4 MG TAB PO SCH (10:01)
--- NOTE | 2016-04-28 14:00 | HHI.PYPN ---
Subjective Remarks Patient was seen and case discussed with nursing. Patient slightly confused saying she needs to get out and go to work. However, she admits to not having a job. Alert and oriented 2. Friendly and helpful with nursing. Compliant with medication. Behaving well on the unit. Denies auditory visual hallucinations. Denies suicidal ideations thought or plan Objective Alert: Yes (patient had episode of altered mental status that resolved within 10-15 minutes, will have hospitalist assess patient) [place]: Person Mood: Calm Affect: Restricted (slightly) Memory Intact: Comment Hallucinations: Other (denies) Delusions: No Delusion Type: Paranoid (vaguely) Suicidal: Ideation (denies) Homicidal: Ideation (denies) Insight/Judgement Poor Vitals/IOs Vital Signs Date Time Temp Pulse Resp B/P Pulse Ox O2 Delivery O2 Flow Rate FiO2 04/28/16 06:22 96.0 81 18 143/65 99 Intake and Output 04/27/16 04/27/16 04/28/16 08:00 16:00 00:00 Intake Total 1590 ml Balance 1590 ml Assessment & Plan Problem List: (1) Dementia ICD Code: F03.90 Assessment & Plan Continue current treatment plan Justification for Cont. Inpt. Patient will decompensate outside of a less restrictive setting Request HC Surrog/Guard Advoc?: Yes Problem Qualifiers (1) Dementia: Qualified Code: F03.91 - Dementia with behavioral disturbance, unspecified dementia type Jez Acosta DO Apr 28, 2016 14:00
[2016-04-28] MEDS: ALUMINUM/MAGNESIUM/SIMETH 30 ML CUP PO PRN (18:47)
[2016-04-28 19:48] VITALS: BP 132/61; PULSE 89; RESP 18; TEMP 98.6; O2SAT 97
[2016-04-28] MEDS: ATORVASTATIN 40 MG TAB PO SCH (20:42)
[2016-04-28] MEDS: REMOVE OLD NICOTINE PATCH T-DERMAL SCH (20:43)
[2016-04-28] MEDS: INSULIN DETEMIR 100 UNITS/ML VIAL SQ SCH (20:43)
[2016-04-29 06:10] VITALS: BP 124/58; PULSE 75; RESP 18; TEMP 97.7; O2SAT 97
[2016-04-29] MEDS: INSULIN ASPART SUPPLEMENTAL SCALE SQ SCH ×4 (06:44→20:58)
[2016-04-29] MEDS: NICOTINE 21 MG/24 HR PATCH T-DERMAL SCH (09:00)
[2016-04-29] MEDS: GLIMEPIRIDE 4 MG TAB PO SCH (10:30)
[2016-04-29] MEDS: ESCITALOPRAM OXALATE 10 MG TAB PO SCH (10:30)
[2016-04-29] MEDS: LISINOPRIL 20 MG TAB PO SCH (10:30)
--- NOTE | 2016-04-29 17:06 | HHI.PYPN ---
Subjective Remarks Patient discussed with treatment team, chart review, patient seen on unit, patient calm pleasant with me, compliant medications, at this and does denies suicidality denies voices or visions. Review of Systems Except as stated in HPI: all other systems reviewed are Neg Objective Alert: Yes (patient had episode of altered mental status that resolved within 10-15 minutes, will have hospitalist assess patient) [place]: Person Mood: Calm Affect: Restricted (slightly) Memory Intact: Comment Hallucinations: Other (denies) Delusions: No Delusion Type: Paranoid (vaguely) Suicidal: Ideation (denies) Homicidal: Ideation (denies) Insight/Judgement Poor Vitals/IOs Vital Signs Date Time Temp Pulse Resp B/P Pulse Ox O2 Delivery O2 Flow Rate FiO2 04/29/16 06:10 97.7 75 18 124/58 97 Intake and Output 04/28/16 04/28/16 04/29/16 08:00 16:00 00:00 Intake Total 600 ml 1110 ml Balance 600 ml 1110 ml Assessment & Plan Problem List: (1) Dementia ICD Code: F03.90 Assessment & Plan Patient continues pleasantly confused, compliant medications, no significant behavioral problems Justification for Cont. Inpt. At this time patient will decompensate if placed in the lower level of care Discharge Planning To be determined Request HC Surrog/Guard Advoc?: Yes Problem Qualifiers (1) Dementia: Qualified Code: F03.91 - Dementia with behavioral disturbance, unspecified dementia type South Ray MD Apr 29, 2016 17:06
[2016-04-29] MEDS: LORazepam 0.5 MG TAB age > 65 yrs PO PRN (18:40)
[2016-04-29 19:46] VITALS: BP 136/65; PULSE 90; RESP 18; TEMP 99.3; O2SAT 99
[2016-04-29] MEDS: ATORVASTATIN 40 MG TAB PO SCH (20:57)
[2016-04-29] MEDS: INSULIN DETEMIR 100 UNITS/ML VIAL SQ SCH (20:58)
[2016-04-29] MEDS: REMOVE OLD NICOTINE PATCH T-DERMAL SCH (20:58)
[2016-04-30 05:37] VITALS: BP 109/66; PULSE 88; RESP 16; TEMP 98.7; O2SAT 94
[2016-04-30] MEDS: INSULIN ASPART SUPPLEMENTAL SCALE SQ SCH ×4 (06:13→21:46)
[2016-04-30] MEDS: NICOTINE 21 MG/24 HR PATCH T-DERMAL SCH (09:00)
[2016-04-30 09:28] VITALS: BP 130/97; PULSE 60
[2016-04-30] MEDS: LISINOPRIL 20 MG TAB PO SCH (09:34)
[2016-04-30] MEDS: ESCITALOPRAM OXALATE 10 MG TAB PO SCH (09:34)
[2016-04-30] MEDS: GLIMEPIRIDE 4 MG TAB PO SCH (09:34)
--- NOTE | 2016-04-30 13:10 | HHI.PYPN ---
Subjective Remarks Patient seen in day room with nurse Ashley, patient calm pleasant with me however when discussing the possibility of discharge to home with patient continues somewhat resistant stating her grandmother go with other relatives. The patient remains confused disoriented. Counselors continuing to attempt to reach DCF to speak with person investigator came here to speak with patient. For now though we will discontinue the Seroquel totally, add Respinol 0.5 mg at noon and 6 PM Review of Systems Except as stated in HPI: all other systems reviewed are Neg Objective Alert: Yes (patient had episode of altered mental status that resolved within 10-15 minutes, will have hospitalist assess patient) [place]: Person Mood: Calm Affect: Restricted (slightly) Memory Intact: Comment Hallucinations: Other (denies) Delusions: No Delusion Type: Paranoid (vaguely) Suicidal: Ideation (denies) Homicidal: Ideation (denies) Insight/Judgement Poor Vitals/IOs Vital Signs Date Time Temp Pulse Resp B/P Pulse Ox O2 Delivery O2 Flow Rate FiO2 04/30/16 09:28 60 130/97 04/30/16 05:37 98.7 16 94 Intake and Output 04/29/16 04/29/16 04/30/16 08:00 16:00 00:00 Intake Total 0 ml 360 ml 870 ml Balance 0 ml 360 ml 870 ml Assessment & Plan Problem List: (1) Dementia ICD Code: F03.90 Assessment & Plan Estimated LOS: days patient remains somewhat confused and demented, staff noting some sundowning behaviors with irritability towards late afternoon early evening. Patient still showing reluctance with returning home with her . See medication adjustment above Justification for Cont. Inpt. At this time patient would severely decompensate if placed in the lower level of care Discharge Planning To be determined Request HC Surrog/Guard Advoc?: Yes Problem Qualifiers (1) Dementia: Qualified Code: F03.91 - Dementia with behavioral disturbance, unspecified dementia type South Ray MD Apr 30, 2016 13:10
[2016-04-30] MEDS: risperiDONE 0.5 MG TAB PO SCH (17:19)
[2016-04-30 19:00] VITALS: BP 133/65; PULSE 85; RESP 16; TEMP 98.2; O2SAT 96
[2016-04-30] MEDS: REMOVE OLD NICOTINE PATCH T-DERMAL SCH (21:00)
[2016-04-30] MEDS: INSULIN DETEMIR 100 UNITS/ML VIAL SQ SCH (21:46)
[2016-04-30] MEDS: ATORVASTATIN 40 MG TAB PO SCH (21:47)
[2016-04-30] MEDS: ACETAMINOPHEN 325 MG TAB PO PRN (22:13)
[2016-05-01] MEDS: ACETAMINOPHEN 325 MG TAB PO PRN (05:06)
[2016-05-01 06:24] VITALS: BP 150/72; PULSE 81; RESP 16; TEMP 97.4; O2SAT 100
[2016-05-01] MEDS: INSULIN ASPART SUPPLEMENTAL SCALE SQ SCH ×4 (06:49→21:24)
[2016-05-01] MEDS: LISINOPRIL 20 MG TAB PO SCH ×3 (09:00→09:57)
[2016-05-01] MEDS: ESCITALOPRAM OXALATE 10 MG TAB PO SCH ×3 (09:00→09:57)
[2016-05-01] MEDS: GLIMEPIRIDE 4 MG TAB PO SCH ×3 (09:00→09:57)
[2016-05-01] MEDS: NICOTINE 21 MG/24 HR PATCH T-DERMAL SCH ×2 (09:00→09:25)
--- NOTE | 2016-05-01 11:37 | HHI.PYPN ---
Subjective Remarks Patient seen in day room with nurse Felicia and family practice resident Teresa, patient calm pleasant with me continues confused. There is meeting with patient 's and patient's son who is coming from out of state tomorrow afternoon Review of Systems Except as stated in HPI: all other systems reviewed are Neg Objective Alert: Yes (patient had episode of altered mental status that resolved within 10-15 minutes, will have hospitalist assess patient) [place]: Person Mood: Calm Affect: Restricted (slightly) Memory Intact: Comment Hallucinations: Other (denies) Delusions: No Delusion Type: Paranoid (vaguely) Suicidal: Ideation (denies) Homicidal: Ideation (denies) Insight/Judgement Very poor Vitals/IOs Vital Signs Date Time Temp Pulse Resp B/P Pulse Ox O2 Delivery O2 Flow Rate FiO2 05/01/16 06:24 97.4 81 16 150/72 100 Intake and Output 04/30/16 04/30/16 05/01/16 08:00 16:00 00:00 Intake Total 120 ml 720 ml 480 ml Balance 120 ml 720 ml 480 ml Assessment & Plan Problem List: (1) Dementia ICD Code: F03.90 Assessment & Plan Estimated LOS: days patient continues confused disoriented, though calm no significant behavioral problems. There is meeting scheduled for tomorrow with the patient's and son Justification for Cont. Inpt. At this time patient will decompensate if placed in a lower level of care Discharge Planning To be determined Request HC Surrog/Guard Advoc?: Yes Problem Qualifiers (1) Dementia: Qualified Code: F03.91 - Dementia with behavioral disturbance, unspecified dementia type South Ray MD May 01, 2016 11:37
[2016-05-01] MEDS: risperiDONE 0.5 MG TAB PO SCH ×2 (11:49→17:05)
[2016-05-01 19:22] VITALS: BP 180/7; PULSE 93; RESP 16; TEMP 97.8; O2SAT 97
[2016-05-01] MEDS: REMOVE OLD NICOTINE PATCH T-DERMAL SCH (21:00)
[2016-05-01] MEDS: ATORVASTATIN 40 MG TAB PO SCH (21:23)
[2016-05-01] MEDS: INSULIN DETEMIR 100 UNITS/ML VIAL SQ SCH (21:24)
[2016-05-02 05:39] VITALS: BP 134/68; PULSE 77; RESP 16; TEMP 98.8
[2016-05-02] MEDS: INSULIN ASPART SUPPLEMENTAL SCALE SQ SCH ×3 (06:06→16:00)
[2016-05-02] MEDS: NICOTINE 21 MG/24 HR PATCH T-DERMAL SCH (08:59)
[2016-05-02] MEDS: LISINOPRIL 20 MG TAB PO SCH (08:59)
[2016-05-02] MEDS: ESCITALOPRAM OXALATE 10 MG TAB PO SCH (08:59)
[2016-05-02] MEDS: GLIMEPIRIDE 4 MG TAB PO SCH (09:00)
[2016-05-02] MEDS: risperiDONE 0.5 MG TAB PO SCH (11:04)
--- NOTE | 2016-05-02 12:37 | HHI.PYPN ---
Subjective Remarks Patient seen today in dayroom with nurse Felicia, patient continues diffusely confused disoriented though, pleasant with me. Reminded her today that there is a schedule meeting with her and son this afternoon. When asked if she wanted to go home with her today she had a somewhat mixed expression on her face. Need to explore this more during the family meeting Review of Systems Except as stated in HPI: all other systems reviewed are Neg Objective Alert: Yes (patient had episode of altered mental status that resolved within 10-15 minutes, will have hospitalist assess patient) [place]: Person Mood: Calm Affect: Restricted (slightly) Memory Intact: Comment Hallucinations: Other (denies) Delusions: No Delusion Type: Paranoid (vaguely) Suicidal: Ideation (denies) Homicidal: Ideation (denies) Insight/Judgement Poor Vitals/IOs Vital Signs Date Time Temp Pulse Resp B/P Pulse Ox O2 Delivery O2 Flow Rate FiO2 05/02/16 05:39 98.8 77 16 134/68 05/01/16 19:22 97 Intake and Output 05/01/16 05/01/16 05/02/16 08:00 16:00 00:00 Intake Total 0 ml 1110 ml Balance 0 ml 1110 ml Assessment & Plan Problem List: (1) Dementia ICD Code: F03.90 Assessment & Plan Estimated LOS: days patient continues to into the confused, though no behavioral problems. Awaiting family meeting this afternoon with and son Justification for Cont. Inpt. At this time patient will decompensate if placed in the lower level of care Discharge Planning To be determined Request HC Surrog/Guard Advoc?: Yes Problem Qualifiers (1) Dementia: Qualified Code: F03.91 - Dementia with behavioral disturbance, unspecified dementia type South Ray MD May 02, 2016 12:37
[2016-05-02] MEDS ORDERED: RISP0.5T20 PO (14:05)
[2016-05-02] MEDS ORDERED: ESCI10TA PO (14:05)
[2016-05-02] MEDS ORDERED: LISI40TA PO (14:08)
[2016-05-02] MEDS ORDERED: SITA1TAB2 PO (14:08)
[2016-05-02] MEDS ORDERED: GLIM4TAB PO (14:08)
[2016-05-02] MEDS ORDERED: ATOR40TA16 PO (14:08)
--- NOTE | 2016-05-02 14:23 | HHI.DS ---
Psychiatry Discharge Summary Inpatient Psychiatric care?: Yes Advance Directive: No Mental Health AdvanceDirective: No Health Care Proxy: No Admission Admission Date Apr 19, 2016 at 17:25 Admission Diagnosis: (1) Dementia ICD Code: F03.90 Brief History Pt seen and discussed with staff.Chart reviewed. Pt is a 76 YOBF who was admitted under a BA alleging that pt was refusing medications and food and became aggressive towards family members. Pt has a hx of dementia, DM and HTN. Pt has become increasingly agitated and forgetful at home. On interview, pt is oriented only to self. She states that she is tired. She is unable to give any history. Staff report that pt barricaded herself in her room twice today due to confusion. Tobacco Use In Past 30 Days: No Tobacco Past 30 Days Alcohol Use: Never Hospital Course Patient's hospital course was uneventful showing no behavioral problems. Though the was some episodes early on of syncope that resolved after the discontinuation of the Seroquel. Otherwise patient has been stable medically. Her confusion and disorientation persisted. Today we met with patient''s , son, brother and [id number] the all feel patient is stable and wish to take her home today. Patient will showing continued confusion showed marked increase affect happiness and seeing her son. Thus patient be discharged today to her family. Will refer home health care for medication management psychiatric nurse and home health aide. Also referred to clinician of the community Results Blood Pressure 134 / 68 Vital Signs Date Time Temp Pulse Resp B/P Pulse Ox O2 Delivery O2 Flow Rate FiO2 05/02/16 05:39 98.8 77 16 134/68 05/01/16 19:22 97 Please see EMR for full lab results Summary of Procedures None done Imaging Last Impressions Carotid Artery Ultrasound 04/23/16 0000 Signed Impressions: Service Date/Time: Saturday, April 23, 2016 16:22 - CONCLUSION: No evidence of anatomic or physiologic stenosis . Mild soft plaquing bilateral carotid bulbs Siva Escobedo MD Head CT 04/19/16113 Signed Impressions: Service Date/Time: Tuesday, April 19, 2016 02:54 - CONCLUSION: Slight atrophic and small vessel ischemic changes without any evidence for acute hemorrhage or mass effect. Crow Madrigal MD Abdomen/Pelvis CT 04/19/164 Signed Impressions: Service Date/Time: Tuesday, April 19, 2016 02:57 - CONCLUSION: Diverticuli in the colon with stool, otherwise unremarkable. Crow Madrigal MD Pending results at discharge: No Medications # of Antipsychotic meds at D/C: 1 Approp Antipsych med options 1 - Minimum of three failed multiple trials of monotherapy. 2 - Documented plan to taper to monotherapy due to previous use of multiple meds OR cross-taper in progress at D/C. 3 - Documentation of augmentation of Clozapine. 4 - Justification other than those listed in allowable values 1-3, document here : Discharge Discharge Date: May 02, 2016 Discharge Diagnosis: (1) Dementia Diagnosis: Principal ICD Code: F03.90 Mental Status Exam at Disch Patient alert diffusely disoriented in all 4 spheres, normal active to somewhat decreased ambulation, mood is euthymic to somewhat restricted affect shows decreased range intensity. The no auditory or visual hallucinations noted no delusions noted insight and judgment is poor cognition is limited Pt Condition on Discharge: Stable Discharge Disposition: Discharge Home Discharge Instructions Diet Instructions: Diabetic Diet Additional Diet Instructions: 1800-calorie diabetic diet Activities you can perform: Regular-No Restrictions Scheduled Appointment: refer home health care with medication management, psychiatric nurse, and home health aide, refer to clinician and community Discharge Time > 30 minutes Discharge/Advance Care Plan Health Problems: (1) Dementia Goals to promote your health * To prevent worsening of your condition and complications * To maintain your health at the optimal level Directions to meet your goals Take your medications as prescribed Follow your dietary instruction Follow activity as directed Keep your appointments as scheduled Take your immunizations and boosters as scheduled If your symptoms worsen call your PCP, if no PCP go to Urgent Care Center or Emergency Room For 21/10 questions related to your inpatient stay or results of tests pending at discharge, please contact Dr. South Ray at Smoking is Dangerous to Your Health. Avoid second hand smoking Problem Qualifiers (1) Dementia: Qualified Code: F03.91 - Dementia with behavioral disturbance, unspecified dementia type South Ray MD May 02, 2016 14:23
== END 2016-05-02 16:25 | disposition home health service (06) | DRG 884 ==
LOC: EDSEX 00:45 → NEPA 00:45 → NEDA 17:25 → H250 18:00
PROVIDERS: ADMIT Psychiatry & Neurology Psychiatry; ATTEND Psychiatry & Neurology Psychiatry
DX: F03.91 Unspecified dementia, unspecified severity, with behavioral disturbance (principal); E11.65 Type 2 diabetes mellitus with hyperglycemia; G20 Parkinson's disease; K57.92 Diverticulitis of intestine, part unspecified, without perforation or abscess without bleeding; Z91.14 Patient's other noncompliance with medication regimen; I10 Essential (primary) hypertension; Z79.4 Long term (current) use of insulin; E78.5 Hyperlipidemia, unspecified
CPT/HCPCS: 36600; 70450; 74177; 80048; 80053; 80061; 81001; 82550; 82805; 82948; 83036; 83690; 84484; 85025; 85610; 85730; 93005; 93880; 95819; 96361; 96374; J1815; J2405; J7030; Q9967